=== PATIENT | female | born 1955 | race Two or more races ===

== ENCOUNTER 2024-12-13 09:45 | Emergency (ER) | payer MEDICARE, SELFPAY ==
[2024-12-13 10:03] VITALS: BP 178/75; PULSE 78; RESP 18; TEMP 36.8; O2SAT 99; BMI 23.1
--- NOTE | 2024-12-13 10:07 | XR_ITS ---
Examination: CT cervical spine without contrast 2-D sagittal reconstructions 2-D coronal reconstructions 3-D reconstructions. Exam date and time: 12/13/2024, 11:06 a.m. INDICATION: Sudden posterior neck pain COMPARISON: None. CTDI:vol (mGy) 13.8 DLP: (mGycm) 280 Technique: Multiple 2 mm axial sections of the cervical spine have been obtained. The coronal and sagittal reconstructions have been obtained. 3-D reconstructions have been obtained. Low dose protocols were performed. One or more of the following dose reduction techniques were used; automated exposure control, adjustment of the mA and/or KV according to patient size, use of iterative reconstruction technique. Findings: Axial sections demonstrate intact base of the skull. C1 exhibit satisfactory relationship to the odontoid. No acute cervical vertebral body fracture seen. Alignment posterior spinous processes satisfactory. S-shaped scoliosis of the visualized cervicothoracic spine is present, with convex right apex at C6-C7, relatively severe grade. No evidence for large disc herniation or severe central canal stenosis. Multilevel cervical degenerative changes are present. There is severe atlantodental joint osteoarthrosis and thickened partially calcified transverse ligament, and mild calcifications of the alar ligaments. Severe disc space narrowing is present peripherally and posteriorly at C3-C4, more severe on the left side, with endplate spondylosis including prominent uncovertebral joint spurring/discussed by complex formation resulting in moderate central canal stenosis eccentric to the left at this level, in addition to severe left neural foraminal stenosis. There is also severe posterior and left predominant disc space narrowing with endplate spondylosis at C4-C5, resulting in severe left neural foraminal stenosis in combination with severe hypertrophic facet arthropathy at this level. A minimal grade 1 degenerative elated anterolisthesis of C4 over C5 is present. No prevertebral soft tissue swelling. No hematoma, lymphadenopathy or other mass. Hypodense right thyroid lobe nodules are present, clearly (axial image 72). Bilateral carotid and vertebral atherosclerosis are present. The visualized lung apices are clear. Impression: No acute cervical fracture. Multilevel cervical degenerative changes with scoliosis as well as central canal and neural foraminal stenoses as described. Right thyroid lobe nodules can be further characterized nonemergent liver thyroid ultrasound.
[2024-12-13] MEDS: DIAZEPAM 5 MG TABLET 10 MG PO (10:23)
[2024-12-13] MEDS: KETOROLAC INJ 30 MG/ML VIAL IM (10:24)
--- NOTE | 2024-12-13 12:02 | EDNOTE_ITS ---
<Statement entered by Christiana Espino MD - 12/13/24 16:04> As co-signing physician, I was present and available for consult prn. I concur with the plan and care as documented by the midlevel provider. ED Neck Injury Pain RME/HPI General Chief Complaint: Neck Pain/Injury Stated Complaint: PAIN IN BACK OF NECK Time Seen by Provider: 12/13/24 10:06 Arrival date/time: 12/13/24 09:45 69-year-old female presents to the emergency department today complaint of neck pain patient reports that she woke up with neck pain yesterday patient reports no dizziness no weakness no headache no chest pain no shortness of breath patient reports the pain is worse when she moves her neck from [id number] Limitations: no limitations Related Data Previous Rx's ?Medication ?Instructions ?Recorded Metformin Hcl 500 mg PO BID #60 tabs 04/23 aspirin 325 mg tablet 325 mg PO QDAY #30 tabs 04/08 07/22 Sulfamethoxazole/Trimethoprim DS * 1 tab PO BID #20 ta bs 07/16/16 (BACTRIM DS *) hydrocodone 5 mg-acetaminophen 325 1 tab PO BID PRN pa in #6 tabs 12/13/24 mg tablet ibuprofen 600 mg tablet 600 mg PO Q6H #30 tabs 12/13 Allergies Allergy/AdvReac Type Severity Reaction Status Date / Time No Known Allergies Allergy Verified 12/13/24 09:49 Review of Systems Review of Systems Systems Reviewed: All systems reviewed, normal except as documented Constitutional Constitutional: Reports system reviewed and no additional complaints, except as documented, Denies fever(s) and Denies headache(s) Eyes Eyes: Reports system reviewed and no additional complaints, except as documented and Denies blurry vision ENT Ears, Nose, Mouth, and Throat: Reports system reviewed and no additional complaints, except as documented, Denies headache(s), Denies nasal congestion, Denies nasal discharge and Reports neck pain Cardiovascular Cardiovascular: Reports system reviewed and no additional complaints, except as documented, Denies chest pain and Denies dyspnea Respiratory Respiratory: Reports system reviewed and no additional complaints, except as documented, Denies chest congestion, Denies cough and Denies dyspnea Gastrointestinal Gastrointestinal: Reports system reviewed and no additional complaints, except as documented and Denies abdominal pain Musculoskeletal Musculoskeletal: Reports system reviewed and no additional complaints, except as documented, Reports neck pain, Denies numbness, Reports stiffness and Denies tingling Integumentary/Breasts Skin/Breast: Reports system reviewed and no additional complaints, except as documented and Denies rash Neurologic Neurologic: Reports system reviewed and no additional complaints, except as documented, Reports as per HPI, Denies headache(s), Denies numbness and Denies tingling Past Medical History Social History SMOKING STATUS: Never smoker ED Exam General Limitations: Present no limitations General appearance: Present alert and in no apparent distress Head Head exam: Present atraumatic, normocephalic and normal inspection Eye Eye exam: Present normal appearance, PERRL and EOMI; Absent conjunctival injection ENT ENT exam: Present normal exam, normal oropharynx and mucous membranes moist Neck Neck exam: Present normal inspection, full ROM, trachea midline and tenderness Chest Chest inspection: Present normal inspection and symmetric chest wall rise Respiratory Respiratory exam: Present normal lung sounds bilaterally; Absent respiratory distress Cardiovascular Cardiovascular exam: Present regular rate, normal rhythm and normal heart sounds Abdominal Exam Abdominal exam: Present soft and normal bowel sounds; Absent distention, tenderness, guarding, rebound or rigidity Extremities Exam Extremities exam: Present normal inspection and full ROM; Absent tenderness Back Exam Back exam: Present normal inspection and full ROM; Absent tenderness Neurological Exam Neurological exam: Present alert, oriented X3 and CN II-XII intact Psychiatric Psychiatric exam: Present normal affect and normal mood Skin Skin exam: Present warm, dry, intact and normal color Course Quality Measures none Orders Category Date Time Status CT cervical spine wo con Stat Exams 12/13/24 10:07 Completed Diazepam [Valium] Med 12/13/24 10:06 Discontinued 10 mg PO X1 ONE Ketorolac Inj [Toradol Inj] Med 12/13/24 10:06 Discontinued 30 mg IM X1 ONE Vital Signs Vital signs: Vital Signs Temperature 98.3 F 12/13/24 10:03 Pulse Rate 78 12/13/24 10:03 Respiratory Rate 18 12/13/24 10:03 Blood Pressure 178/75 H 12/13/24 10:03 Pulse Oximetry (%) 99 12/13/24 10:03 Oxygen Delivery Method Room Air 12/13/24 10:03 O2 saturation 99% r/a wnl Neck Pain MDM Narrative MDM Narrative:: 69-year-old female presents to the emergency department today complaint of neck pain patient reports that she woke up with neck pain yesterday patient reports no dizziness no weakness no headache no chest pain no shortness of breath patient reports the pain is worse when she moves her neck from [id number] On exam patient well-appearing patient does not appear look toxic acute distress Imaging obtained no acute fracture or dislocation noted patient has chronic DDD as well as incidental thyroid nodule After medication patient reports improvement with neck pain Patient discharged home in no distress to follow-up with primary care doctor in the next 24 to 48 hours and for any worsening symptoms to return to the ER immediately Patient data External records reviewed:: [facility] previous records Clinical information provided by:: patient and family Social determinants that could affect healthcare access:: none Patient has the following chronic illnesses:: See history How is presenting disease/condition affected by chronic disease/condition?: exacerbated by Evaluation data The following diagnostics were reviewed and interpreted by me:: radiology exam(s) Lab and/or radiology exams considered but not ordered:: Radiology plain Interpretation Summary: Reviewed by me Medications / Prescriptions Medications or Prescriptions considered but not ordered:: Given Medication administrations:: Medication Administration History Discontinued Medications Diazepam (Diazepam 5 Mg Tablet) 10 mg PO X1 ONE Stop: 12/13/24 10:07 Last Admin: 12/13/24 10:23 Dose: 10 mg Documented By: Ketorolac Tromethamine (Ketorolac Inj 30 Mg/Ml Vial) 30 mg IM X1 ONE Stop: 12/13/24 10:07 Last Admin: 12/13/24 10:24 Dose: 30 mg Documented By: Given Consultations Consultation(s) initiated? (list below): No Diagnosis Neck Differential Diagnosis: disc disorder of cervical region, whiplash injury to neck and other Most likely diagnosis given after review of the tests above:: Neck pain Admission Indicated Admission indicated?: not indicated Admission Request Was there a request for admission?: No Disposition Plan Disposition Plan: Discharge Discharge Attestation Discharge Attestation: The patient and all family members were given an opportunity to ask questions and understood the discharge instructions. Discharge instructions specifically effects, indications for sooner follow up or return to the emergency department, and the expected course of current diagnosis. Patient condition: Stable Discharge Plan Plan Patient Disposition: HOME (Self Care) Discharge Disposition comment: Stable Prescriptions/Referrals Prescriptions/Med Rec: New hydrocodone-acetaminophen 5-325 mg tablet 1 tab PO BID MDD 10 PRN (Reason: pain) Qty: 6 0RF ibuprofen 600 mg tablet 600 mg PO Q6H Qty: 30 0RF No Action aspirin 325 MG tablet 325 mg PO QDAY Qty: 30 0RF Metformin Hcl 500 MG tablet 500 mg PO BID Qty: 60 0RF Sulfamethoxazole/Trimethoprim DS * (BACTRIM DS *) 1 TAB tablet 1 tab PO BID Qty: 20 0RF Referrals: Flores (ARIACHL),Beatriz, ENERGY CONSERVATION ENGINEER [Primary Care Provider] - In 1 week Problem List Clinical Impression: DDD (degenerative disc disease), cervical, Thyroid nodule incidentally noted on imaging study Patient/Caregiver Discharge Instructions Education Materials: Torticollis (Wry Neck) Additional Instructions: Please follow up with your primary care doctor in the next 24-48hrs for any worsening symptoms return here immediately Incidentally you were noted to have a thyroid nodule need to have an outpatient ultrasound and biopsy Print Language: Tuvaluan Stand Alone Forms: Marycarmen Award Info., Patient Portal Info Letter RAJWINDER/ENERGY CONSERVATION ENGINEER Supervising Physician RAJWINDER/ENERGY CONSERVATION ENGINEER Supervising Physician: Dr. Espino
== END 2024-12-13 12:30 | disposition home or self-care (01) ==
PROVIDERS: Emergency Provider Nurse Practitioner Primary Care; PCP Nurse Practitioner Primary Care
DX: M43.6 Torticollis (principal)
CPT/HCPCS: 72125; 96372; 99283; J1885; A9270